=== PATIENT | male | born 1985 | race Caucasian/White ===

== ENCOUNTER → 2017-03-06 | Outpatient (CLI) | payer BC | LOC: FCPNEURO 23:11 | PROVIDERS: ATTEND Psychiatry & Neurology Sleep Medicine | DX: G47.33 Obstructive sleep apnea (adult) (pediatric) (principal); G47.61 Periodic limb movement disorder; F51.3 Sleepwalking [somnambulism] ==

== ENCOUNTER 2018-05-15 11:38 | Emergency (ER) | payer OTHER ==
--- NOTE | 2018-05-15 11:46 | EDPHY ---
H & P Time Seen by Provider: 05/15/18 11:46 HPI/ROS: CHIEF COMPLAINT: Tunnel vision HISTORY OF PRESENT ILLNESS: Patient presents with visual symptoms today which occurred when he bent down under the sink to picker and packer something. He stood up and felt "fuzzies" in his vision followed by tunnel vision with only able to see clearly in the middle with of feeling like it was "water" on the entire periphery. He was able to tell that this was a binocular phenomenon. Not associated with headache or syncope. Lasted 5-10 minutes and now is completely gone. Of note 3 weeks ago he slipped on the ice and some minor head neck trauma. He has had neck pain for about the past week. He is not sure if it was related to breaking a multivitamin pill in half and swallowing at on that day but he felt like he was strange to swallow and then Wednesday felt like he had a golf ball in his throat and some right-sided neck pain worse than left. Saw his primary care provider on they did thyroid and labs and strep which were negative and is scheduled to see ENT tomorrow. It is improved after massage. REVIEW OF SYSTEMS: Eye: HPI ENT: HPI no difficulty swallowing Cardiac: no chest pain or syncope Pulmonary: no cough or SOB Abdomen: no vomiting, diarrhea, abdominal pain Musculoskeletal: no back pain Skin: no rash Neuro: no headache Constitutional: no fever : no urinary symptoms A comprehensive 10 point review of systems is otherwise negative aside from elements mentioned in the history of present illness. PAST MEDICAL HISTORY: Negative Social history: Nonsmoker General Appearance: Alert and conversant, cooperative. Eyes: No scleral icterus. Pupils equal reactive extraocular motion intact. Visual pickard intact to confrontation. No nystagmus. Discs are sharp. ENT, Mouth: Normal mucous membranes. Respiratory: Normal respiratory effort, breath sounds equal, lungs are clear to auscultation. Cardiovascular: Regular rate and rhythm. Gastrointestinal: Abdomen is soft and non tender. Neurological: Alert, face symmetric, normal motor and sensory in extremities. Ambulatory, not ataxic. Fluent speech. Skin: Warm and dry, no rashes. Musculoskeletal: No peripheral edema. Psychiatric: Not agitated. Emergency Department course/MDM: Visual acuity noted by myself in nursing notes as normal. Symptoms have completely resolved. Discussed with Mango at 1242. He recommends CT angiography to exclude possibility dissection. My clinical impression is this was more likely to be near-syncope or atypical migraine or orthostatic hypotension, does not appear to be primary ophthalmological problem was binocular. I think TIA or seizure unlikely. I told patient I thought dissection was not the most likely diagnosis but that the recommendation of Neurology was angiography of his neck and the patient consents. 1435: Normal CTA per Dr. Salazar. Smoking Status: Never smoked Constitutional: Initial Vital Signs Temperature (C) 36.5 C 05/15/18 11:38 Heart Rate 61 05/15/18 11:38 Respiratory Rate 16 05/15/18 11:38 Blood Pressure 125/65 H 05/15/18 11:38 O2 Sat (%) 96 05/15/18 11:38 O2 Delivery Mode Room Air Medical Decision Making - Diagnostics Imaging Results: Imaging Impressions Neck CTA 05/15/18 13:13 Impression: Negative CT angiography of the neck with no arterial occlusive disease identified. Specifically, no findings to suggest arterial dissection. Results called and discussed with Michael Trevino MD on May 15, 2018 at 1433 hours. Note: All stenoses are calculated using NASCET criteria. Imaging: Discussed imaging studies w/ egg producer Radiologist - Data Points Laboratory Results: 05/15/18 13:10 POC Hgb 15.0 gm/dL gm/dL (13.7-17.5) POC Hct 44 % % (40-51) POC Sodium 144 mEq/L mEq/L (135-145) POC Potassium 4.0 mEq/L mEq/L (3.3-5.0) POC Chloride 107 mEq/L mEq/L (97-110) POC Total CO2 23 mEq/L mEq/L (22-31) POC BUN 11 mg/dL mg/dL (7-23) POC Creatinine 0.8 mg/dL mg/dL (0.7-1.3) POC Glucose 100 mg/dL mg/dL (70-100) Point of Care Test Results: Chemistry 05/15/18 13:10 POC Sodium 144 mEq/L mEq/L (135-145) POC Potassium 4.0 mEq/L mEq/L (3.3-5.0) POC Chloride 107 mEq/L mEq/L (97-110) POC Total CO2 23 mEq/L mEq/L (22-31) POC BUN 11 mg/dL mg/dL (7-23) POC Creatinine 0.8 mg/dL mg/dL (0.7-1.3) POC Glucose 100 mg/dL mg/dL (70-100) ISTAT H&H 05/15/18 13:10 POC Hgb 15.0 gm/dL gm/dL (13.7-17.5) POC Hct 44 % % (40-51) Departure - Departure Disposition: Home, Routine, Self-Care Clinical Impression: Tunnel visual field constriction of both eyes, Neck pain Condition: Good Instructions: Acute Neck Pain (ED) Additional Instructions: Please follow-up with Dr. Lopez from [facility] tomorrow as already scheduled. Your CT scan of the neck did not show any blood vessel dissection or tear. Please follow-up with Neurology in the next 1-2 weeks for evaluation of your visual symptoms that happened today. Referrals: Lydia Lopez MD [Medical Doctor] - As per Instructions Steve Cobian MD [Medical Doctor] - As per Instructions
[2018-05-15] MEDS ORDERED: IOPAMIDOL (ISOVUE 370) 100 ML BTL IV ONE (13:22)
[2018-05-15 14:48] VITALS: BP 107/69
--- NOTE | 2018-05-15 17:19 | PDCONSULT ---
[facility] Note: ED NEUROLOGY PHONE CONSULT: I was called by ED regarding this patients symptoms of bilateral, binocular tunnel vision after bending down and standing up. Sx's lasted almost 10 min. Hx of falling on ice 3 weeks ago w/ neck pain. RECC: CTA head/neck to exclude dissection. If any abnormalities, call neurology cait for further recommendations.
== END 2018-05-15 14:47 | disposition home or self-care (01) ==
DX: H53.9 Unspecified visual disturbance (principal); M54.2 Cervicalgia; Z87.828 Personal history of other (healed) physical injury and trauma
CPT/HCPCS: 82435-PO; 82565-PO; 82947-PO; 84132-PO; 84295-PO; 84520-PO; 85014-ER; Q9967